=== PATIENT | male | born 1970 | race Caucasian/White ===

== ENCOUNTER 2016-08-19 15:17 | Emergency (ER) | payer MEDICAID ==
[2016-08-19 15:23] VITALS: BP 152/101
== END 2016-08-19 18:51 | disposition home or self-care (01) ==
LOC: ED 15:17
DX: S09.22XA Traumatic rupture of left ear drum, initial encounter (principal); S09.21XA Traumatic rupture of right ear drum, initial encounter; Z79.1 Long term (current) use of non-steroidal anti-inflammatories (NSAID); W50.0XXA Accidental hit or strike by another person, initial encounter; Y93.89 Activity, other specified; Y92.89 Other specified places as the place of occurrence of the external cause; Y99.8 Other external cause status

== ENCOUNTER 2016-08-29 19:21 | Emergency (ER) | payer MEDICAID ==
[2016-08-29 20:38] VITALS: BP 131/98
== END 2016-08-29 20:38 | disposition home or self-care (01) ==
LOC: ED 19:21
DX: S61.411A Laceration without foreign body of right hand, initial encounter (principal); R03.0 Elevated blood-pressure reading, without diagnosis of hypertension; Z79.891 Long term (current) use of opiate analgesic; W26.9XXA Contact with unspecified sharp object(s), initial encounter; Y93.89 Activity, other specified; Y92.89 Other specified places as the place of occurrence of the external cause; Y99.8 Other external cause status
CPT/HCPCS: A4570

== ENCOUNTER 2017-01-27 15:13 | Emergency (ER) | payer MEDICAID ==
[2017-01-27 18:09] VITALS: BP 126/84
== END 2017-01-27 18:12 | disposition home or self-care (01) ==
LOC: ED 15:13
DX: S61.012A Laceration without foreign body of left thumb without damage to nail, initial encounter (principal); G43.909 Migraine, unspecified, not intractable, without status migrainosus; E78.00 Pure hypercholesterolemia, unspecified; W26.0XXA Contact with knife, initial encounter; Y93.89 Activity, other specified; Y99.8 Other external cause status; Y92.89 Other specified places as the place of occurrence of the external cause
CPT/HCPCS: 90715; A4570; J2001